=== PATIENT | female | born 1940 | race Two or more races ===

== ENCOUNTER 2017-08-04 10:45 | Inpatient (IN) | payer OTHER ==
[~2017-08-04] VITALS: Ht 152.4 cm; Wt 52.6 kg
[2017-08-04] MEDS ORDERED: PENTOXIFYLLINE400 MG PO (13:26)
[2017-08-04] MEDS ORDERED: GABAPENTIN300 MG PO (13:27)
[2017-08-04] MEDS ORDERED: METOPROLOL SUCC50 MG PO (13:27)
[2017-08-04] MEDS ORDERED: [UNRECOGNIZED DRUG - OTHER] PO (13:28)
[2017-08-04] MEDS ORDERED: OMEPRAZOLE20 MG PO (13:28)
[2017-08-04] MEDS ORDERED: RANITIDINE HCL300 M1 PO (13:29)
[2017-08-04] MEDS ORDERED: CILOSTAZOL100 MG PO (13:29)
[2017-08-04] MEDS ORDERED: METOCLOPRAMIDE H5 MG PO (13:30)
[2017-08-04] MEDS ORDERED: ZOCOR40 MG PO (13:30)
[2017-08-04] MEDS ORDERED: CLONAZEPAM0.5 MG PO (13:30)
[2017-08-04] MEDS ORDERED: CLOPIDOGREL BIS75 MG PO ×2 (13:31→13:33)
[2017-08-04] MEDS ORDERED: HUMALOG MI100 UNIT/2 (13:32)
[2017-08-04] MEDS ORDERED: LANTUS (13:32)
[2017-08-04] MEDS ORDERED: PNEU16DI2 (13:33)
[2017-08-08] MEDS ORDERED: INTESTINEX680 M1 PO (08:08)
[2017-08-08] MEDS ORDERED: ULTRACET PO (08:08)
[2017-08-08] MEDS ORDERED: RECTICARE30 GM TOP (08:08)
== END 2017-08-08 09:42 | disposition home or self-care (01) | DRG 349 ==
LOC: O/R 08-06 06:34 → SURG 08-06 06:34 → O/R 08-06 09:00 → SURG 08-06 17:00
PROVIDERS: Surgery
PROC: 0DQR0ZZ Repair Anal Sphincter, Open Approach (ICD-10-PCS; 2017-08-06)
PROC: 0DBP7ZZ Excision of Rectum, Via Natural or Artificial Opening (ICD-10-PCS; principal; 2017-08-06 09:00)
DX: K62.3 Rectal prolapse (principal)

== ENCOUNTER 2017-08-19 14:27 | Inpatient (IN) | payer OTHER ==
[~2017-08-19] VITALS: Ht 152.4 cm; Wt 49.9 kg
[~2017-08-19 14:27] MED LIST: CILOSTAZOL100 MG PO; CLONAZEPAM0.5 MG PO; CLOPIDOGREL BIS75 MG PO; GABAPENTIN300 MG PO; HUMALOG MI100 UNIT/2; INTESTINEX680 M1 PO; LANTUS; METOCLOPRAMIDE H5 MG PO; METOPROLOL SUCC50 MG PO; OMEPRAZOLE20 MG PO; PENTOXIFYLLINE400 MG PO; PNEU16DI2; RANITIDINE HCL300 M1 PO; RECTICARE30 GM TOP; ULTRACET PO; ZOCOR40 MG PO; [UNRECOGNIZED DRUG - OTHER] PO
[2017-08-26] MEDS ORDERED: FLAGYL500MG PO (10:12)
[2017-08-26] MEDS ORDERED: CIPRO500 MG PO (10:12)
== END 2017-08-26 12:52 | disposition home health service (06) | DRG 863 ==
LOC: ER 14:27 → MEDJ 18:19
PROC: BW25Y0Z Computerized Tomography (CT Scan) of Chest, Abdomen and Pelvis using Other Contrast, Unenhanced and Enhanced (ICD-10-PCS; principal; 2017-08-19)
PROC: 02HV33Z Insertion of Infusion Device into Superior Vena Cava, Percutaneous Approach (ICD-10-PCS; 2017-08-21)
PROC: 3E0436Z Introduction of Nutritional Substance into Central Vein, Percutaneous Approach (ICD-10-PCS; 2017-08-21)
DX: T81.4XXA Infection following a procedure, initial encounter (principal); K61.1 Rectal abscess; N18.4 Chronic kidney disease, stage 4 (severe); I13.10 Hypertensive heart and chronic kidney disease without heart failure, with stage 1 through stage 4 chronic kidney disease, or unspecified chronic kidney disease; E11.22 Type 2 diabetes mellitus with diabetic chronic kidney disease; D63.1 Anemia in chronic kidney disease; B96.29 Other Escherichia coli [E. coli] as the cause of diseases classified elsewhere; B96.4 Proteus (mirabilis) (morganii) as the cause of diseases classified elsewhere; B95.2 Enterococcus as the cause of diseases classified elsewhere; B96.7 Clostridium perfringens [C. perfringens] as the cause of diseases classified elsewhere; E11.65 Type 2 diabetes mellitus with hyperglycemia; Z79.4 Long term (current) use of insulin; D47.3 Essential (hemorrhagic) thrombocythemia; D50.0 Iron deficiency anemia secondary to blood loss (chronic); K62.3 Rectal prolapse